=== PATIENT | female | born 1995 | race African-American/Black ===

== ENCOUNTER 2018-06-05 11:31 | Inpatient (IN) | payer OTHER ==
[~2018-06-05] VITALS: Ht 157.5 cm; Wt 113.1 kg
[~2018-06-05 11:31] MED LIST: ADDERALL20 MG PO; CIPRO500 MG PO; DIFLUCAN150 MG PO; FLAGYL500 MG PO; IBUPROFEN800 MG PO; LORTAB 5-325 M1 EACH PO; OMEPRAZOLE40 M1 PO; PRENATAL TABLE1 EAC3 PO; SERTRALINE HCL50 MG PO; TYLENOL EXTRA500 MG PO; VYVANSE30 MG PO; ZANTAC150 MG PO; ZOFRAN ODT4 MG PO; ZOFRAN4 MG PO
[2018-06-05 12:14] LABS: APPEARANCE CLEAR ((CLEAR)); BILIRUBIN MODERATE; BLOOD NEGATIVE; COLOR AMBER ((YELLOW)); GLUCOSE (STRIP) NEGATIVE; KETONES 20; LEUKOCYTES NEGATIVE; NITRITE NEGATIVE; PROTEIN (STRIP) 100; SPECIFIC GRAVITY 1.043 (1.000-1.030)
[2018-06-05 12:20] LABS: ICTOTEST ND
[2018-06-05 12:30] LABS: HEMATOCRIT 39.4 % (36.0-46.0); HEMOGLOBIN 12.9 G/DL (11.9-15.5); MCH 28.2 PG (29.0-34.0); MCHC 32.7 G/DL (30.0-36.0); MCV 86.2 FL (83-99); RBC DIS.WIDTH-CV 14.8 % (11.8-14.6); RED BLOOD COUNT 4.57 M/uL (3.80-5.20); WHITE BLOOD COUNT 6.3 K/uL (4.1-10.2)
[2018-06-05 12:41] LABS: CHLORIDE 104 mEq/L (99-109); POTASSIUM 4.2 mEq/L (3.7-5.4); SODIUM 140 mEq/L (136-147)
[2018-06-05 12:42] LABS: RED BLOOD CELLS NONE SEEN /HPF (0-5); WHITE BLOOD CELLS RARE /HPF (0-5)
[2018-06-05 12:43] LABS: BACTERIA 1+ /HPF; EPITHELIAL CELLS NONE SEEN /HPF; MUCUS 4+ /LPF; UCUL ADDED? NO
[2018-06-05 12:43] LABS: GLUCOSE 99 mg/dL (70-99)
[2018-06-05 12:44] LABS: TOTAL PROTEIN 7.5 g/dL (6.4-8.3)
[2018-06-05 12:58] LABS: QUANTITATIVE HCG < 4.0 MIU/ML
[2018-06-05 13:41] LABS: CREATININE 0.7 MG/DL (0.6-1.3); GFR ESTIMATE (CALCULATED) > 59 mL/min/; TOTAL BILIRUBIN 4.2 MG/DL (0.0-1.0); UREA NITROGEN (BUN) 7 mg/dL (9-23)
[2018-06-05 13:42] LABS: ALBUMIN 4.1 g/dL (3.2-4.8); ALKALINE PHOSPHATASE 179 IU/L (3-129); ALT (GPT) 396 IU/L (3-49); AST (GOT) 197 IU/L (2-34)
[2018-06-05 13:43] LABS: PLAT.SUFFICIENCY ADEQUATE; PLATELET COUNT 286 K/uL (156-360)
[2018-06-05 14:30] LABS: AMYLASE 39 IU/L (1-118)
[2018-06-05 14:36] LABS: LIPASE 19 U/L (1.0-51.0)
[2018-06-05 15:09] LABS: MONOSPOT (MONONUCLEOSIS SEROL) NEGATIVE
[2018-06-05] MEDS ORDERED: ADDERALL XR 2020 MG PO (18:34)
[2018-06-05] MEDS ORDERED: ZOLPIDEM TARTRAT5 MG PO (18:34)
[2018-06-05] MEDS ORDERED: TYLENOL EXTRA500 MG PO (18:35)
[2018-06-05] MEDS ORDERED: ARIPIPRAZOLE10 MG PO (18:35)
[2018-06-05] MEDS ORDERED: ADVIL200 MG PO (18:36)
[2018-06-05] MEDS ORDERED: NEXPLANON68 MG SC (18:36)
[2018-06-06 00:58] VITALS: BP 125/66
[2018-06-06 06:46] LABS: HEMATOCRIT 35.9 % (36.0-46.0); HEMOGLOBIN 11.5 G/DL (11.9-15.5); MCH 27.6 PG (29.0-34.0); MCV 86.1 FL (83-99); RBC DIS.WIDTH-CV 14.7 % (11.8-14.6); RBC DIS.WIDTH-SD 46.8 % (39-53); RED BLOOD COUNT 4.17 M/uL (3.80-5.20); WHITE BLOOD COUNT 6.8 K/uL (4.1-10.2)
[2018-06-06 07:09] LABS: ALBUMIN 3.4 G/DL (3.2-4.8); ALKALINE PHOSPHATASE 144 IU/L (3-129); ALT (GPT) 346 IU/L (3-49); AST (GOT) 167 IU/L (2-34); CHLORIDE 104 MEQ/L (99-109); CREATININE 0.8 MG/DL (0.6-1.3); GFR ESTIMATE (CALCULATED) > 59 mL/min/; GLUCOSE 84 mg/dL (70-99); PLAT.SUFFICIENCY ADEQUATE; PLATELET COUNT 267 K/uL (156-360); SODIUM 138 MEQ/L (136-147); UREA NITROGEN (BUN) 8 mg/dL (9-23)
[2018-06-06 07:19] LABS: TOTAL BILIRUBIN 2.2 MG/DL (0.0-1.0)
[2018-06-06 07:54] VITALS: BP 103/63
[2018-06-06 10:30] VITALS: BP 114/58
[2018-06-06 15:52] VITALS: BP 129/69
[2018-06-06 23:36] VITALS: BP 110/63
[2018-06-07 06:36] LABS: HEMATOCRIT 33.5 % (36.0-46.0); HEMOGLOBIN 11.2 G/DL (11.9-15.5); MCH 28.6 PG (29.0-34.0); MCHC 33.4 G/DL (30.0-36.0); MCV 85.7 FL (83-99); PLATELET COUNT 242 K/uL (156-360); RBC DIS.WIDTH-CV 14.8 % (11.8-14.6); RBC DIS.WIDTH-SD 45.9 % (39-53); RED BLOOD COUNT 3.91 M/uL (3.80-5.20)
[2018-06-07 06:55] VITALS: BP 112/64
[2018-06-07 07:04] LABS: ALBUMIN 3.2 G/DL (3.2-4.8); ALKALINE PHOSPHATASE 150 IU/L (3-129); ALT (GPT) 278 IU/L (3-49); AST (GOT) 115 IU/L (2-34); CHLORIDE 105 MEQ/L (99-109); CREATININE 0.7 MG/DL (0.6-1.3); GFR ESTIMATE (CALCULATED) > 59 mL/min/; LIPASE 9 U/L (1.0-51.0); POTASSIUM 4.2 MEQ/L (3.7-5.4); SODIUM 139 MEQ/L (136-147); TOTAL PROTEIN 5.7 G/DL (6.4-8.3); UREA NITROGEN (BUN) 7 mg/dL (9-23)
[2018-06-07 07:05] LABS: GLUCOSE 109 mg/dL (70-99); TOTAL BILIRUBIN 1.1 MG/DL (0.0-1.0)
[2018-06-07 15:31] VITALS: BP 115/70
[2018-06-08 00:16] VITALS: BP 121/78
[2018-06-08 07:24] LABS: BASOPHIL (%) 0.7 % (0-1); BASOPHIL COUNT 0.1 K/uL (0-0.1); EOSINOPHIL (%) 2.3 % (0-5); EOSINOPHIL COUNT 0.2 K/uL (0-0.3); HEMOGLOBIN 11.4 G/DL (11.9-15.5); IMMATURE GRANULOCYTE (%) 0.4 % (0.0-0.7); LYMPHOCYTE COUNT 4.4 K/uL (1.0-2.8); MCH 27.9 PG (29.0-34.0); MCHC 32.6 G/DL (30.0-36.0); MCV 85.8 FL (83-99); MONOCYTE (%) 6.9 % (3-12); MONOCYTE COUNT 0.6 K/uL (0-0.8); NEUTROPHIL (%) 35.7 % (45-76); NEUTROPHIL COUNT 2.9 K/uL (1.8-6.4); PLATELET COUNT 241 K/uL (156-360); RBC DIS.WIDTH-CV 14.9 % (11.8-14.6); RBC DIS.WIDTH-SD 46.5 % (39-53); RED BLOOD COUNT 4.08 M/uL (3.80-5.20); WHITE BLOOD COUNT 8.2 K/uL (4.1-10.2)
[2018-06-08 07:38] LABS: ALBUMIN 3.5 G/DL (3.2-4.8); ALKALINE PHOSPHATASE 117 IU/L (3-129); ALT (GPT) 304 IU/L (3-49); AST (GOT) 138 IU/L (2-34); CHLORIDE 106 MEQ/L (99-109); CREATININE 0.8 MG/DL (0.6-1.3); GFR ESTIMATE (CALCULATED) > 59 mL/min/; GLUCOSE 88 mg/dL (70-99); POTASSIUM 4.2 MEQ/L (3.7-5.4); SODIUM 141 MEQ/L (136-147); UREA NITROGEN (BUN) 7 mg/dL (9-23)
[2018-06-08 09:26] VITALS: BP 116/56
[2018-06-08 12:19] VITALS: BP 115/71
[2018-06-08] MEDS ORDERED: NICOTINE PATCH1 EAC2 TD (14:06)
[2018-06-08] MEDS ORDERED: OXAYDO5 MG PO (14:06)
[2018-06-08 16:19] VITALS: BP 127/58
[2018-06-08 23:34] VITALS: BP 118/63
[2018-06-09 06:13] LABS: HEMATOCRIT 35.5 % (36.0-46.0); HEMOGLOBIN 11.5 G/DL (11.9-15.5); MCH 27.6 PG (29.0-34.0); MCHC 32.4 G/DL (30.0-36.0); MCV 85.1 FL (83-99); RBC DIS.WIDTH-CV 14.6 % (11.8-14.6); RBC DIS.WIDTH-SD 45.3 % (39-53); RED BLOOD COUNT 4.17 M/uL (3.80-5.20); WHITE BLOOD COUNT 11.6 K/uL (4.1-10.2)
[2018-06-09 06:41] LABS: ALBUMIN 3.6 G/DL (3.2-4.8); ALKALINE PHOSPHATASE 115 IU/L (3-129); ALT (GPT) 311 IU/L (3-49); AST (GOT) 126 IU/L (2-34); CHLORIDE 102 MEQ/L (99-109); CREATININE 0.6 MG/DL (0.6-1.3); GFR ESTIMATE (CALCULATED) > 59 mL/min/; POTASSIUM 4.5 MEQ/L (3.7-5.4); SODIUM 136 MEQ/L (136-147); TOTAL PROTEIN 6.3 G/DL (6.4-8.3); UREA NITROGEN (BUN) 6 mg/dL (9-23)
[2018-06-09 06:42] LABS: GLUCOSE 140 mg/dL (70-99); TOTAL BILIRUBIN 0.7 MG/DL (0.0-1.0)
[2018-06-09 06:45] LABS: PLAT.SUFFICIENCY ADEQUATE; PLATELET COUNT 258 K/uL (156-360)
[2018-06-09 08:05] VITALS: BP 133/96
== END 2018-06-09 14:12 | disposition home or self-care (01) | DRG 418 ==
LOC: EME 11:31 → EDOF 21:21 → 5EAST 21:21 → CANRESERV 21:51 → ENRESERV 21:51 → CANRESERV 23:01 → ENRESERV 23:02 → 5EAST 06-06 00:52
PROVIDERS: Hospitalist; Physician Assistant; Physician Assistant Surgical; Surgery
PROC: 0FC98ZZ Extirpation of Matter from Common Bile Duct, Via Natural or Artificial Opening Endoscopic (ICD-10-PCS; principal; 2018-06-06)
PROC: 0FT44ZZ Resection of Gallbladder, Percutaneous Endoscopic Approach (ICD-10-PCS; 2018-06-08)
DX: K80.67 Calculus of gallbladder and bile duct with acute and chronic cholecystitis with obstruction (principal); Z68.42 Body mass index [BMI] 45.0-49.9, adult; F17.210 Nicotine dependence, cigarettes, uncomplicated; E66.01 Morbid (severe) obesity due to excess calories; F12.90 Cannabis use, unspecified, uncomplicated; Z56.0 Unemployment, unspecified
CPT/HCPCS: 74181; 74330; 76705; 80053; 81003; 82150; 82948; 83690; 84702; 85025; 85027; 86308; 87081; 88304; 99281; 99284; C1757; C1769; J1100; J1170; J1650; J1885; J2250; J2270; J2405; J2543; J2710; J3010; J7030; J7050; J7643